=== PATIENT | female | born 1990 | race African-American/Black ===

== ENCOUNTER 2018-11-15 12:30 | Emergency (ER) | payer OTHER ==
[~2018-11-15] VITALS: Ht 175.3 cm; Wt 102.3 kg
[2018-11-15] MEDS ORDERED: MetroNIDAZOLE 500 MG TABLET PO ONE (14:45)
[2018-11-15] MEDS ORDERED: CefTRIAXone SODIUM 1 GM/VIAL IM ONE (14:45)
[2018-11-15] MEDS ORDERED: LIDOCAINE 1% 10 ML VIAL INJ ONE (14:45)
[2018-11-15] MEDS ORDERED: AZITHROMYCIN 250 MG TABLET PO ONE (14:45)
[2018-11-15 15:45] VITALS: BP 131/81
== END 2018-11-15 16:05 | disposition home or self-care (01) ==
LOC: EMS 12:32
DX: N76.0 Acute vaginitis (principal)
CPT/HCPCS: 81002; 96372; 99283; J0696; J3490